=== PATIENT | female | born 1985 | race Caucasian/White ===

== ENCOUNTER 2018-11-18 16:11 | Emergency (ER) | payer BC ==
[2018-11-18] MEDS ORDERED: Sodium Chloride 0.9% 1,000 ML IV ONE (16:32)
[2018-11-18] MEDS ORDERED: Sucralfate 1 GM Tab PO ONE (16:32)
[2018-11-18] MEDS ORDERED: Alum Hydrox/Mag Hydrox/Simeth 30 ML, Lidocaine 2% 15 ML PO ONE ×2 (16:32)
--- NOTE | 2018-11-18 16:45 | EDM.PDOC ---
ED HPI GENERAL MEDICAL PROBLEM - General Chief Complaint: Abdominal Pain Stated Complaint: [facility] Time Seen by Provider: 11/18/18 16:23 Source of Information: Reports: Patient History Limitations: Reports: No Limitations - History of Present Illness INITIAL COMMENTS - FREE TEXT/NARRATIVE: patient is a 32-year-old female presents ED complaining of epigastric pain. She does have a history of acid reflux for quite some time. In the past she was on a PPI but she ran out and she stopped taking. Over the past several days she is in experiencing increased heartburn. Today she ate steak with fries and gravy and developed severe acid reflux with nausea/vomiting. Pain is localized to the epigastric region. She's had similar pain like this in the past when she had H pylori. She did undergo eradication therapy with resolution. She has had a EGD in the past 3 years ago with no history of Mooney's esophagus. She denies any bloody emesis, dark tarry stools, bloody stools, fever, chills, shortness of breath, chest pain, diarrhea, constipation, history of pancreatitis , history of gallbladder attacks, excessive alcohol use. She denies any drug use. she denies being since had an tubal ligation. patient was transported to the ED via ambulance. She received Zofran 4 mg IVP and also morphine 4 mg in total. 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 cyst removed on right ovary. - Past Surgical History HEENT Surgical History: Reports: Tonsillectomy GI Surgical History: Reports: Hernia Repair/Other Musculoskeletal Surgical History: Reports: Other (See Below) Other Musculoskeletal Surgeries/Procedures:: right knee surgery Social & Family History - Caffeine Use Caffeine Use: Reports: Coffee ED ROS GENERAL - Review of Systems Review Of Systems: ROS reveals no pertinent complaints other than HPI. ED EXAM, GI/ABD - Physical Exam Exam: See Below Exam Limited By: No Limitations General Appearance: Alert, WD/WN, No Apparent Distress Ears: Hearing Grossly Normal Nose: Normal Inspection Throat/Mouth: Normal Inspection, Normal Oropharynx, Normal Voice, No Airway Compromise Head: Atraumatic, Normocephalic Neck: Normal Inspection, Supple, Non-Tender, Full Range of Motion Respiratory/Chest: No Respiratory Distress, Lungs Clear, Normal Breath Sounds, No Accessory Muscle Use, Chest Non-Tender Cardiovascular: Normal Peripheral Pulses, Regular Rate, Rhythm, No Murmur GI/Abdominal Exam: Normal Bowel Sounds, Soft, No Organomegaly, No Distention, Tender (Epigastric pain with palpation. Negative Guerrero sign. Negative McBurney' s point tenderness.) Back Exam: Normal Inspection Extremities: Normal Inspection, Normal Range of Motion, Non-Tender, Normal Capillary Refill Neurological: Alert, Oriented, CN II-XII Intact, Normal Cognition, No Motor/ Sensory Deficits Psychiatric: Normal Affect, Normal Mood Skin Exam: Warm, Dry, Intact, Normal Color Course - Vital Signs Last Recorded V/S: Last Vital Signs Temp 97.9 F 11/18/18 19:00 Pulse 70 11/18/18 19:00 Resp 16 11/18/18 19:00 BP 124/81 11/18/18 19:00 Pulse Ox 100 11/18/18 19:00 - Orders/Labs/Meds Orders: Active Orders 24 hr Category Date Time Status Abdomen 2V AP Flat Upright [CR] Stat Exams 11/18/18 16:31 Taken Labs: Laboratory Tests 11/18/18 11/18/18 11/18/18 Range/Units 16:50 16:57 16:57 WBC 11.22 H (3.98-10.04) K/mm3 RBC 4.90 (3.98-5.22) M/mm3 Hgb 11.8 (11.2-15.7) gm/L Hct 36.7 (34.1-44.9) % MCV 74.9 L D (79.4-94.8) fl MCH 24.1 L (25.6-32.2) pg MCHC 32.2 (32.2-35.5) g/dl RDW Std Deviation 43.5 (36.4-46.3) fL Plt Count 299 (182-369) K/mm3 MPV 11.5 (9.4-12.3) fl Neutrophils % (Manual) 82 H (40-60) % Band Neutrophils % 0 (0-10) % Lymphocytes % (Manual) 9 L (20-40) % Atypical Lymphs % 0 % Monocytes % (Manual) 6 (2-10) % Eosinophils % (Manual) 3 (0.7-5.8) % Basophils % (Manual) 0 L (0.1-1.2) Platelet Estimate Adequate Hypochromasia 1+ slight Microcytosis 1+ slight RBC Morph Comment Abnormal Sodium (136-145) mEq/L Potassium (3.5-5.1) mEq/L Chloride (98-107) mEq/L Carbon Dioxide (21-32) mEq/L Anion Gap (5-15) BUN (7-18) mg/dL Creatinine (0.55-1.02) mg/dL Est Cr Clr Drug Dosing mL/min Estimated GFR (MDRD) (>60) mL/min BUN/Creatinine Ratio (14-18) Glucose (74-106) mg/dL Calcium (8.5-10.1) mg/dL Total Bilirubin (0.2-1.0) mg/dL AST (15-37) U/L ALT (14-59) U/L Alkaline Phosphatase (46-116) U/L C-Reactive Protein (<1.0) mg/dL Total Protein (6.4-8.2) g/dl Albumin (3.4-5.0) g/dl Globulin gm/dL Albumin/Globulin Ratio (1-2) Lipase (73-393) U/L Urine Color Light yellow (Yellow) Urine Appearance Clear (Clear) Urine pH 6.0 (5.0-8.0) Ur Specific [place] 1.020 (1.005-1.030) Urine Protein Negative (Negative) Urine Glucose (UA) Negative (Negative) Urine Ketones Negative (Negative) Urine Occult Blood Trace-lysed H (Negative) Urine Nitrite Negative (Negative) Urine Bilirubin Negative (Negative) Urine Urobilinogen 0.2 (0.2-1.0) Ur Leukocyte Esterase Negative (Negative) Urine RBC Not seen (0-5) /hpf Urine WBC 0-5 (0-5) /hpf Ur Squamous Epith Cells 0-5 (0-5) /hpf Urine Bacteria Not seen (FEW) /hpf Urine Mucus Not seen (FEW) /hpf Urine HCG, Qual Negative (NEGATIVE) 11/18/18 Range/Units 16:57 WBC (3.98-10.04) K/mm3 RBC (3.98-5.22) M/mm3 Hgb (11.2-15.7) gm/L Hct (34.1-44.9) % MCV (79.4-94.8) fl MCH (25.6-32.2) pg MCHC (32.2-35.5) g/dl RDW Std Deviation (36.4-46.3) fL Plt Count (182-369) K/mm3 MPV (9.4-12.3) fl Neutrophils % (Manual) (40-60) % Band Neutrophils % (0-10) % Lymphocytes % (Manual) (20-40) % Atypical Lymphs % % Monocytes % (Manual) (2-10) % Eosinophils % (Manual) (0.7-5.8) % Basophils % (Manual) (0.1-1.2) Platelet Estimate Hypochromasia Microcytosis RBC Morph Comment Sodium 140 (136-145) mEq/L Potassium 4.0 (3.5-5.1) mEq/L Chloride 105 (98-107) mEq/L Carbon Dioxide 21 (21-32) mEq/L Anion Gap 18.0 H (5-15) BUN 14 (7-18) mg/dL Creatinine 0.8 (0.55-1.02) mg/dL Est Cr Clr Drug Dosing 99.08 mL/min Estimated GFR (MDRD) > 60 (>60) mL/min BUN/Creatinine Ratio 17.5 (14-18) Glucose 111 H (74-106) mg/dL Calcium 9.0 (8.5-10.1) mg/dL Total Bilirubin 0.2 (0.2-1.0) mg/dL AST 18 (15-37) U/L ALT 24 (14-59) U/L Alkaline Phosphatase 77 (46-116) U/L C-Reactive Protein < 0.2 (<1.0) mg/dL Total Protein 7.9 (6.4-8.2) g/dl Albumin 3.9 (3.4-5.0) g/dl Globulin 4.0 gm/dL Albumin/Globulin Ratio 1.0 (1-2) Lipase 148 (73-393) U/L Urine Color (Yellow) Urine Appearance (Clear) Urine pH (5.0-8.0) Ur Specific [place] (1.005-1.030) Urine Protein (Negative) Urine Glucose (UA) (Negative) Urine Ketones (Negative) Urine Occult Blood (Negative) Urine Nitrite (Negative) Urine Bilirubin (Negative) Urine Urobilinogen (0.2-1.0) Ur Leukocyte Esterase (Negative) Urine RBC (0-5) /hpf Urine WBC (0-5) /hpf Ur Squamous Epith Cells (0-5) /hpf Urine Bacteria (FEW) /hpf Urine Mucus (FEW) /hpf Urine HCG, Qual (NEGATIVE) Meds: Medications Discontinued Medications Generic Name Dose Route Start Last Admin Trade Name Freq PRN Reason Stop Dose Admin Al Hydroxide/Mg Hydroxide 30 0 ml 11/18/18 16:32 11/18/18 17:43 ml/ Lidocaine HCl 15 ml PO 11/18/18 16:33 45 ml ONETIME ONE Administration Diphenhydramine HCl 50 mg 11/18/18 16:52 11/18/18 17:30 Benadryl IVPUSH 11/18/18 16:53 50 mg ONETIME ONE Administration Diphenhydramine HCl Confirm 11/18/18 17:33 11/18/18 17:35 Benadryl Administered 11/18/18 17:34 Not Given Dose 50 mg .ROUTE .STK-MED ONE Sodium Chloride 1,000 mls @ 250 mls/hr 11/18/18 16:32 11/18/18 17:44 Normal Saline IV 11/18/18 20:31 250 mls/hr ONETIME ONE Administration Metoclopramide HCl 5 mg 11/18/18 16:52 11/18/18 17:26 Reglan IVPUSH 11/18/18 16:53 5 mg ONETIME ONE Administration Sucralfate 1 gm 11/18/18 16:32 11/18/18 17:40 Carafate PO 11/18/18 16:33 1 gm ONETIME ONE Administration - Re-Assessments/Exams Free Text/Narrative Re-Assessment/Exam: On exam patient has severe epigastric pain with palpation. Her vital signs are stable. She is afebrile. She does carry a history of GERD as well as H pylori and underwent eradication therapy. She is hCG in the past with no history of Mooney's esophagus. She does not carry a history of pancreatitis or gallbladder attacks. She denies being with history of tubal ligation. IV has been established. Ordered and S, GI cocktail, superficial 1 mg by mouth. Initial labs and studies will include: CBC, chem 14, CRP, lipase, UA, and 2 view of the abdomen. Labs reviewed: UA indicated trace lysed blood. HCG was negative. CBC indicated White blood cell count 11.22, hemoglobin normal, MCV 74.9, neutrophil percentage is 82, no left shift, platelet count normal. CMP was essentially normal. CRP less than 0.2. Lipase normal. 184 reassessment, patient states the pain and nausea have subsided with the above therapies. She is ready be discharged home. Patient will be discharged home with instructions for gastritis. Return precautions were discussed with the patient. She had no further questions or concerns and agreed with plan Departure - Departure Time of Disposition: 18:42 Disposition: Home, Self-Care 01 Condition: Good Clinical Impression: Gastritis Qualifiers: Gastritis type: unspecified gastritis Chronicity: acute Gastritis bleeding: without bleeding Qualified Code(s): K29.00 - Acute gastritis without bleeding - Discharge Information Prescriptions: Acetaminophen/HYDROcodone [[place] 325-5 MG] 1 tab PO Q6H PRN #6 tablet PRN Reason: Pain (Severe 7-10) Sucralfate 1 gm PO QID #28 tablet Instructions: Gastritis, Adult, [id number], Nausea and Vomiting, Adult, Easy- to-Read Referrals: Maya Escoto PA-C [Primary Care Provider] - Forms: ED Department Discharge, ED Return to Work/School Form Additional Instructions: Take Prilosec 40 mg every a.m. half-hour prior to eating for the next 2 weeks. Take sucralfate one tab 4 times a day for the next 7 days. Utilize Zantac 150 milligrams at at bedtime. Do not eat or drink within 3-4 hours of going to bed. Refrain from spicy foods, caffeinated beverages, chocolates, carbonated beverages, or any other foods that cause aggravation. Please follow up with your PCP for reevaluation and H. Pylori Stool Antigen testing in 3 to [address] today since receiving a sedative medication. Do not drive while taking the Falconer. - My Orders Last 24 Hours: My Active Orders 11/18/18 16:31 Abdomen 2V AP Flat Upright [CR] Stat - Assessment/Plan Last 24 Hours: My Active Orders 11/18/18 16:31 Abdomen 2V AP Flat Upright [CR] Stat
[2018-11-18] MEDS ORDERED: Metoclopramide 10 MG/2 ML SDV IVPUSH ONE (16:52)
[2018-11-18] MEDS ORDERED: diphenhydrAMINE 50 MG/ML SDV IVPUSH ONE (16:52)
[2018-11-18] MEDS ORDERED: diphenhydrAMINE 50 MG/ML SDV ONE (17:33)
--- NOTE | 2018-11-19 12:31 | CR ---
Abdomen: Supine and upright views of the abdomen were obtained. Comparison: No prior abdominal x-ray, previous abdominal ultrasound of 09/19/[address] abdomen and pelvis study of 08/21/18. Bowel gas pattern is normal. No abnormal calcifications or soft tissue abnormality is seen. Bony structures are unremarkable. Impression: 1. Nothing acute is seen on two-view abdominal x-ray. Diagnostic code #1
== END 2018-11-18 19:00 | disposition home or self-care (01) ==
LOC: SUPCPDRO 16:11 → JD.ED 16:11
DX: K29.00 Acute gastritis without bleeding (principal); Z91.018 Allergy to other foods; Z88.8 Allergy status to other drugs, medicaments and biological substances; Z79.899 Other long term (current) drug therapy
CPT/HCPCS: 36415; 74019; 80053; 81001; 81025; 83690; 85007; 85027; 86140; 96361; 96374; 96375; 99284; A9270; J1200; J2765; J7040

== ENCOUNTER 2019-01-05 21:12 | Emergency (ER) | payer BC ==
[2019-01-05] MEDS ORDERED: Sodium Chloride 0.9% 10 ML Syringe FLUSH PRN (21:25)
[2019-01-05] MEDS ORDERED: Hyoscyamine 0.125 MG Tab.SL SL ONE (21:25)
[2019-01-05] MEDS ORDERED: Sodium Chloride 0.9% 1,000 ML IV ONE (21:27)
[2019-01-05] MEDS ORDERED: Metoclopramide 10 MG/2 ML SDV IVPUSH ONE (21:33)
[2019-01-05] MEDS ORDERED: Alum Hydrox/Mag Hydrox/Simeth 30 ML, Lidocaine 2% 15 ML PO ONE ×2 (21:33)
--- NOTE | 2019-01-05 21:40 | EDM.PDOC ---
ED HPI GENERAL MEDICAL PROBLEM - General Chief Complaint: Abdominal Pain Stated Complaint: [facility] Time Seen by Provider: 01/05/19 21:24 Source of Information: Reports: Patient, RN Notes Reviewed History Limitations: Reports: No Limitations - History of Present Illness INITIAL COMMENTS - FREE TEXT/NARRATIVE: Patient is a 33-year-old female who presents to the ED via [facility] for the evaluation of right upper quadrant pain. Patient notes that the pain has been constant since this last . She states she did have a HIDA scan done on Sunday, has not gotten the report for this yet. Patient notes her primary care provider is Trinidad Escoto. Patient states she took hydrocodone for pain relief, but this did not provide much relief. Patient vomited today around 2 times, her last food intake was at around 2 PM, and her last fluid intake was water, at roughly 7:45 PM. Patient notes that her pain is to her right upper quadrant, and shoots to her back. She does note a positive history for H. pylori, she states the last time she took antibiotics for this was one month ago. Patient denies any chance of . The patient did receive Zofran and fentanyl en route to the ER. Patient denies any fevers or chills that she's been having, but states she does have hot flashes with pain. Patient notes she has had previous hernia surgeries in her abdomen, but has not had any other abdomen surgeries. Patient states she is not vomiting of blood. Right Upper Abdomen Pain Score (Numeric/FACES): 4 - Related Data Allergies Allergy/AdvReac Type Severity Reaction Status Date / Time carrot Allergy Difficulty Verified 11/18/18 16:25 Breathing metronidazole [From Flagyl] Allergy Difficulty Verified 11/18/18 16:25 Breathing walnut Allergy Swollen Verified 11/18/18 16:25 Tongue Home Meds: Home Meds Acetaminophen/HYDROcodone [[place] 325-5 MG] 1 tab PO Q6H PRN #6 tablet 11/18/18 [ Rx] Pantoprazole [ProTONIX] 20 mg PO BID 01/05/19 [History] Past Medical History HEENT History: Reports: Impaired Vision Other HEENT History: wears contacts Gastrointestinal History: Reports: Other (See Below) Other Gastrointestinal History: gallstones Genitourinary History: Reports: Renal Calculus, UTI, Recurrent Other Genitourinary History: Past UtI's and Kidney stones 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 cyst removed on right ovary. Neurological History: Reports: Headaches, Chronic - Infectious Disease History Infectious Disease History: Reports: Chicken Pox - Past Surgical History HEENT Surgical History: Reports: Tonsillectomy GI Surgical History: Reports: Hernia Repair/Other Musculoskeletal Surgical History: Reports: Other (See Below) Other Musculoskeletal Surgeries/Procedures:: right knee surgery Social & Family History - Caffeine Use Caffeine Use: Reports: Coffee ED ROS GENERAL - Review of Systems Review Of Systems: See Below Constitutional: Reports: Fever (subjective), Chills HEENT: Reports: No Symptoms Respiratory: Denies: Shortness of Breath Cardiovascular: Reports: Palpitations. Denies: Chest Pain GI/Abdominal: Reports: Abdominal Pain (RUQ), Nausea, Vomiting, Other (heartburn) . Denies: Constipation, Diarrhea : Reports: No Symptoms Musculoskeletal: Reports: No Symptoms Skin: Reports: No Symptoms Neurological: Reports: No Symptoms Psychiatric: Reports: No Symptoms Hematologic/Lymphatic: Reports: No Symptoms Immunologic: Reports: No Symptoms ED EXAM, GI/ABD - Physical Exam Exam: See Below Exam Limited By: No Limitations General Appearance: Alert, WD/WN, No Apparent Distress (pt appears to be in pain ) Ears: Normal External Exam Throat/Mouth: Normal Inspection, Normal Lips, Normal Teeth, Normal Gums, Normal Oropharynx, Normal Voice, No Airway Compromise Head: Atraumatic, Normocephalic Neck: Normal Inspection Respiratory/Chest: No Respiratory Distress, Lungs Clear, Normal Breath Sounds, No Accessory Muscle Use, Chest Non-Tender Cardiovascular: Normal Peripheral Pulses, Regular Rate, Rhythm, No Murmur GI/Abdominal Exam: Normal Bowel Sounds, Soft, No Distention, No Mass, Tender ( RUQ, Guerrero sign positive) Extremities: Normal Inspection, Normal Capillary Refill Neurological: Alert, Oriented, Normal Cognition, No Motor/Sensory Deficits Psychiatric: Normal Affect, Normal Mood Skin Exam: Warm, Dry, Intact, Normal Color, No Rash Course - Vital Signs Last Recorded V/S: Last Vital Signs Temp 98.0 F 01/05/19 21:28 Pulse 71 01/05/19 21:28 Resp 20 01/05/19 21:28 BP 110/71 01/05/19 21:28 Pulse Ox 99 01/05/19 21:28 - Orders/Labs/Meds Orders: Active Orders 24 hr Category Date Time Status Peripheral IV Care [RC] . DIRECTED Care 01/05/19 21:25 Active Abdomen Pelvis w Cont [CT] Stat Exams 01/05/19 21:35 Taken Magnesium Citrate [Citrate of Magnesia] Med 01/05/19 23:04 Once 296 ml PO ONETIME ONE Sodium Chloride 0.9% [Saline Flush] Med 01/05/19 21:25 Active 10 ml FLUSH ASDIRECTED PRN Peripheral IV Insertion Adult [OM.PC] Stat Oth 01/05/19 21:24 Ordered Medication Orders Sodium Chloride (Saline Flush) 10 ml FLUSH ASDIRECTED PRN PRN Reason: Keep Vein Open Last Admin: 01/05/19 21:34 Dose: 10 ml Labs: Laboratory Tests 01/05/19 01/05/19 Range/Units 21:58 21:58 WBC 12.16 H (3.98-10.04) K/mm3 RBC 4.90 (3.98-5.22) M/mm3 Hgb 11.8 (11.2-15.7) gm/dl Hct 36.7 (34.1-44.9) % MCV 74.9 L (79.4-94.8) fl MCH 24.1 L (25.6-32.2) pg MCHC 32.2 (32.2-35.5) g/dl RDW Std Deviation 44.3 (36.4-46.3) fL Plt Count 275 (182-369) K/mm3 MPV 11.0 (9.4-12.3) fl Neutrophils % (Manual) 69 H (40-60) % Band Neutrophils % 0 (0-10) % Lymphocytes % (Manual) 25 (20-40) % Atypical Lymphs % 0 % Monocytes % (Manual) 6 (2-10) % Eosinophils % (Manual) 0 L (0.7-5.8) % Basophils % (Manual) 0 L (0.1-1.2) Platelet Estimate Adequate Microcytosis 1+ slight Ovalocytes 1+ slight RBC Morph Comment Not Reportable Sodium 139 (136-145) mEq/L Potassium 3.8 (3.5-5.1) mEq/L Chloride 106 (98-107) mEq/L Carbon Dioxide 21 (21-32) mEq/L Anion Gap 15.8 H (5-15) BUN 13 (7-18) mg/dL Creatinine 0.7 (0.55-1.02) mg/dL Est Cr Clr Drug Dosing 112.20 mL/min Estimated GFR (MDRD) > 60 (>60) mL/min BUN/Creatinine Ratio 18.6 H (14-18) Glucose 91 (74-106) mg/dL Calcium 8.4 L (8.5-10.1) mg/dL Total Bilirubin 0.2 (0.2-1.0) mg/dL GGT 23 (5-55) U/L AST 13 L (15-37) U/L ALT 24 (14-59) U/L Alkaline Phosphatase 74 (46-116) U/L Total Protein 7.3 (6.4-8.2) g/dl Albumin 3.5 (3.4-5.0) g/dl Globulin 3.8 gm/dL Albumin/Globulin Ratio 0.9 L (1-2) Meds: Medications Generic Name Dose Route Start Last Admin Trade Name Freq PRN Reason Stop Dose Admin Sodium Chloride 10 ml 01/05/19 21:25 01/05/19 21:34 Saline Flush FLUSH 10 ml ASDIRECTED PRN Administration Keep Vein Open Discontinued Medications Generic Name Dose Route Start Last Admin Trade Name Freq PRN Reason Stop Dose Admin Al Hydroxide/Mg Hydroxide 30 0 ml 01/05/19 21:33 01/05/19 21:41 ml/ Lidocaine HCl 15 ml PO 01/05/19 21:34 45 ml ONETIME ONE Administration Hyoscyamine 0.125 mg 01/05/19 21:25 01/05/19 21:34 Hyomax-Sl SL 01/05/19 21:26 0.125 mg ONETIME ONE Administration Sodium Chloride 1,000 mls @ 999 mls/hr 01/05/19 21:27 01/05/19 21:34 Normal Saline IV 01/05/19 22:27 999 mls/hr ONETIME ONE Administration Iopamidol 100 ml 01/05/19 22:32 01/05/19 22:34 Isovue-300 (61%) IVPUSH 01/05/19 22:33 100 ml ONETIME ONE Administration Metoclopramide HCl mg 01/05/19 21:33 01/05/19 21:41 Reglan IVPUSH 01/05/19 21:34 10 mg ONETIME ONE Administration - Re-Assessments/Exams Free Text/Narrative Re-Assessment/Exam: 01/05/19 21:40 Patient presents to the ED for the evaluation of right upper quadrant abdominal pain. Her pain is suspicious of gallbladder etiology, did order CBC, CMP, GGT, 1 tab of Levsin, 10 mg Reglan and a GI cocktail for initial management. 01/05/19 23:04 Patient is resting quietly in the room, CT is done, and demonstrate no acute abnormalities at this time. I did have a chance to look over the patient's HIDA scan, this showed normal gallbladder, but with a decreased ejection fraction of 30%. I did discuss these findings with the patient, I directed her to follow up with her primary care provider for further management of this. She is understanding. At this time the patient's CT did show quite a diffuse amount of stool in her colon, consistent with constipation. Will have her take some mag citrate at home to see if that doesn't help alleviate some of the problems. Departure - Departure Time of Disposition: 23:05 Disposition: Home, Self-Care 01 Condition: Fair Clinical Impression: Biliary colic Constipation Qualifiers: Constipation type: unspecified constipation type Qualified Code(s): K59.00 - Constipation, unspecified - Discharge Information *PRESCRIPTION DRUG MONITORING PROGRAM REVIEWED*: No *COPY OF PRESCRIPTION DRUG MONITORING REPORT IN PATIENT OMEGA: No Instructions: High-Fiber Diet, Constipation, Adult, [id number] Forms: ED Department Discharge Additional Instructions: You were evaluated in the ER tonight regarding your right upper quadrant abdominal pain. Your CT demonstrated no acute bacterial infection or abnormality of the gallbladder, nor was it impressive for any other sort of acute abnormality, like appendicitis. Your labs were essentially within normal limits, you were slightly dehydrated with the IV fluid should help with this. Your CT also demonstrated mild amount of stool in her colon, which is consistent with constipation. You were provided with magnesium citrate, please take one half bottle tomorrow morning, wait a few hours see if this doesn't provide a large bowel movement, if not, repeat with the other half bottle. Recommend that you follow up with your primary care provider, Trinidad Escoto for further management regarding her gallbladder from here. You may take Tylenol every 6 hours as needed for further pain relief, or the hydrocodone as previously prescribed. Please return to the ED if your symptoms should change or worsen. - My Orders Last 24 Hours: My Active Orders 01/05/19 21:24 Peripheral IV Insertion Adult [OM.PC] Stat 01/05/19 21:25 Peripheral IV Care [RC] . DIRECTED Sodium Chloride 0.9% [Saline Flush] 10 ml FLUSH ASDIRECTED PRN 01/05/19 21:35 Abdomen Pelvis w Cont [CT] Stat 01/05/19 23:04 Magnesium Citrate [Citrate of Magnesia] 296 ml PO ONETIME ONE - Assessment/Plan Last 24 Hours: My Active Orders 01/05/19 21:24 Peripheral IV Insertion Adult [OM.PC] Stat 01/05/19 21:25 Peripheral IV Care [RC] . DIRECTED Sodium Chloride 0.9% [Saline Flush] 10 ml FLUSH ASDIRECTED PRN 01/05/19 21:35 Abdomen Pelvis w Cont [CT] Stat 01/05/19 23:04 Magnesium Citrate [Citrate of Magnesia] 296 ml PO ONETIME ONE
[2019-01-05] MEDS ORDERED: Iopamidol 612 MG/ML 100 ML Bottle IVPUSH ONE (22:32)
[2019-01-05] MEDS ORDERED: Magnesium Citrate Solution 296 ML Bottle PO ONE (23:04)
--- NOTE | 2019-01-06 07:05 | CT ---
CT abdomen and pelvis Technique: Multiple axial sections were obtained from above the dome of the diaphragm inferiorly through the pubic symphysis. Intravenous contrast was utilized. No oral contrast has been given. Comparison: Prior CT abdomen and pelvis exam of 08/21/18. Findings: Visualized lung bases show nothing acute. Liver contains no focal abnormality. Spleen appears within normal limits. Adrenal glands show no nodule. Pancreas is within normal limits. Gallbladder contains no calcified gallstones. Kidneys show symmetric contrast enhancement without hydronephrosis or mass. Aorta shows no aneurysm. No retroperitoneal adenopathy or mesenteric abnormalities are seen. No pelvic mass or adenopathy is identified. Appendix is seen which is normal in size. No free fluid or inflammatory change is seen. Delayed images show contrast within the bladder. Bone window settings were reviewed which appear within normal limits for the patient's age. Impression: 1. Nothing acute is appreciated on CT study of the abdomen and pelvis. 2. No significant change from previous study is seen. Diagnostic code #1 I agree with preliminary report from [facility], finalized on 01/05/19, 11:54 PM Central Time
== END 2019-01-05 23:23 | disposition home or self-care (01) ==
LOC: JD.ED 21:12
DX: K80.50 Calculus of bile duct without cholangitis or cholecystitis without obstruction (principal); K59.00 Constipation, unspecified; Z91.018 Allergy to other foods; Z88.8 Allergy status to other drugs, medicaments and biological substances
CPT/HCPCS: 36415; 74177; 74177-26; 80053; 82977; 85007; 85027; 96361; 96374; 99284; 99285-25; A9270-GY; J2765; J7040; Q9967

== ENCOUNTER 2019-01-16 09:00 | Day surgery (SDC) | payer BC ==
[~2019-01-16 09:00] MED LIST: Lactated Ringers 1,000 ML IV SCH; Lidocaine 1%/Sod Bicarbonate in NS 8.4% 1 ML Syringe IDERM PRN; Sodium Chloride 0.9% 10 ML Syringe FLUSH PRN
[2019-01-16] MEDS ORDERED: Bupivacaine 0.5%/EPINEPHrine 1:200,000 50 ML MDV ONE (09:03)
[2019-01-16] MEDS ORDERED: Scopolamine 1.5 MG Transdermal Patch TOP ONE (09:54)
--- NOTE | 2019-01-16 10:02 | PCM.PREANE ---
Preanesthetic Assessment - Anesthesia/Transfusion/Family Hx Anesthesia History: Prior Anesthesia Reaction Type of Anesthesia Reaction: Excessive Nausea/Vomiting Family History of Anesthesia Reaction: No Transfusion History: No Prior Transfusion(s) Intubation History: Unknown - Review of Systems General: No Symptoms Pulmonary: No Symptoms Cardiovascular: No Symptoms Gastrointestinal: No Symptoms Neurological: Headache - Physical Assessment NPO Status Date: 01/15/19 NPO Status Time: 18:30 Vital Signs: Last Vital Signs Temp 97.5 F 01/16/19 09:15 Pulse 60 01/16/19 09:15 Resp 16 01/16/19 09:15 BP 123/92 H 01/16/19 09:15 Pulse Ox 96 01/16/19 09:15 Height: 1.7 m Weight: 79.832 kg ASA Class: 2 Mental Status: Alert & Oriented x3 Airway Class: Mallampati = 3 Dentition: Reports: Dentures (upper plate), Broken Tooth/Teeth (lt lower incisor broken, patient is aware that it might be lost during GA and she is OK with that) Thyro-Mental Finger Breadths: 3 Mouth Opening Finger Breadths: 3 ROM/Head Extension: Full Lungs: Clear to Auscultation, Normal Respiratory Effort Cardiovascular: Regular Rate, Regular Rhythm - Lab Values: Laboratory Last Values Urine HCG, Qual Negative (NEGATIVE) 01/16/19 09:16 - Allergies Allergies/Adverse Reactions: Allergies Allergy/AdvReac Type Severity Reaction Status Date / Time carrot Allergy Airway Verified 01/15/19 12:52 Tightness docusate [From Colace] Allergy Cannot Verified 01/15/19 12:52 Remember Influenza Virus Vaccines Allergy Other Verified 01/15/19 12:52 metronidazole [From Flagyl] Allergy Airway Verified 01/15/19 12:52 Tightness walnut Allergy Airway Verified 01/15/19 12:52 Tightness - Anesthesia Plan Pre-Op Medication Ordered: Other - Acknowledgements Anesthesia Type Planned: General Anesthesia Pt an Appropriate Candidate for the Planned Anesthesia: Yes Alternatives and Risks of Anesthesia Discussed w Pt/Guardian: Yes Pt/Guardian Understands and Agrees with Anesthesia Plan: Yes PreAnesthesia Questionnaire HEENT History: Reports: Impaired Vision, Other (See Below) Other HEENT History: Upper dentures Cardiovascular History: Reports: None Respiratory History: Reports: None Gastrointestinal History: Reports: GERD, Helicobacter Pylori, Other (See Below) Other Gastrointestinal History: Diarrhea Genitourinary History: Reports: Renal Calculus, UTI, Recurrent Other Genitourinary History: Past UtI's and Kidney stones FLORIST History: Reports: Ectopic , Other OB/BYN History: Gardenella vaginitis, ovarian cyst Musculoskeletal History: Reports: Other (See Below) Other Musculoskeletal History: Tendinitis, left ankle sprain Neurological History: Reports: Headaches, Chronic Psychiatric History: Reports: None Endocrine/Metabolic History: Reports: None Hematologic History: Reports: None Immunologic History: Reports: None Oncologic (Cancer) History: Reports: None Dermatologic History: Reports: None - Infectious Disease History Infectious Disease History: Reports: Other (See Below) Other Infectious Disease History: Cold sores - Past Surgical History Head Surgeries/Procedures: Reports: None HEENT Surgical History: Reports: Adenoidectomy, Tonsillectomy Cardiovascular Surgical History: Reports: None Respiratory Surgical History: Reports: None GI Surgical History: Reports: Other (See Below) Other GI Surgeries/Procedures: Triple hernia repair Female Surgical History: Reports: Tubal Ligation, Other (See Below) Other Female Surgeries/Procedures: Diagnostic laparoscopy Endocrine Surgical History: Reports: None Neurological Surgical History: Reports: None Musculoskeletal Surgical History: Reports: Other (See Below) Other Musculoskeletal Surgeries/Procedures:: Right knee surgery for cyst removal Oncologic Surgical History: Reports: None Dermatological Surgical History: Reports: None - SUBSTANCE USE Smoking Status *Q: Current Every Day Smoker Tobacco Use Within Last Twelve Months: Cigarettes Second Hand Smoke Exposure: Yes Recreational Drug Use History: No - HOME MEDS Home Medications: Home Meds Acetaminophen/HYDROcodone [[place] 325-5 MG] 1 tab PO Q6H PRN #6 tablet 11/18/18 [ Rx] RX: Pantoprazole [ProTONIX] 20 mg PO BID 01/05/19 [History] - CURRENT (IN HOUSE) MEDS Current Meds: Current Medications Lactated Ringer's (Ringers, Lactated) 1,000 mls @ 125 mls/hr IV ASDIRECTED MADELINE Stop: 01/17/19 23:00 Last Admin: 01/16/19 09:45 Dose: 125 mls/hr Lidocaine/Sodium Bicarbonate (Buffered Lidocaine 1% In Ns 8.4%) 0.25 ml IDERM ONETIME PRN PRN Reason: Prior to IV Start Stop: 01/16/19 23:00 Last Admin: 01/16/19 09:44 Dose: 0.25 ml Scopolamine (Transderm-Scop) 1.5 mg TOP ONETIME ONE Stop: 01/16/19 09:55 Sodium Chloride (Saline Flush) 10 ml FLUSH ASDIRECTED PRN PRN Reason: Keep Vein Open Stop: 01/16/19 23:00 Discontinued Medications Bupivacaine HCl/Epinephrine Bitart (Marcaine 0.5%/Epinephrine 1:200,000) Confirm Administered Dose 50 ml .ROUTE .STK-MED ONE Stop: 01/16/19 09:04
[2019-01-16] MEDS ORDERED: Propofol 200 MG/20 ML SDV ONE (10:03)
[2019-01-16] MEDS ORDERED: Lidocaine 1% 4 ML ONE (10:04)
[2019-01-16] MEDS ORDERED: Flumazenil 0.1 MG/ML 5 ML MDV ONE (10:04)
[2019-01-16] MEDS ORDERED: Midazolam 1 MG/ML 2 ML SDV ONE (10:05)
[2019-01-16] MEDS ORDERED: fentaNYL 250 MCG/5 ML SDV ONE (10:05)
[2019-01-16] MEDS ORDERED: Rocuronium 50 MG/5 ML Vial ONE (10:05)
[2019-01-16] MEDS ORDERED: ceFAZolin 1 GM Vial ONE (10:28)
[2019-01-16] MEDS ORDERED: Ondansetron 4 MG/2 ML SDV ONE (10:47)
[2019-01-16] MEDS ORDERED: Dexamethasone 4 MG/ML 5 ML MDV ONE (10:48)
[2019-01-16] MEDS ORDERED: HYDROmorphone 0.5 MG/0.5 ML Syringe IVPUSH PRN (10:59)
[2019-01-16] MEDS ORDERED: Ondansetron 4 MG/2 ML SDV IVPUSH PRN (10:59)
[2019-01-16] MEDS ORDERED: diphenhydrAMINE 50 MG/ML SDV IVPUSH PRN (10:59)
[2019-01-16] MEDS ORDERED: fentaNYL 100 MCG/2 ML SDV IVPUSH PRN (10:59)
[2019-01-16] MEDS ORDERED: Lactated Ringers 1,000 ML ONE (11:07)
[2019-01-16] MEDS ORDERED: HYDROmorphone 0.5 MG/0.5 ML Syringe ONE (11:21)
[2019-01-16] MEDS ORDERED: Ketorolac 30 MG/ML SDV ONE (11:24)
[2019-01-16] MEDS ORDERED: fentaNYL 100 MCG/2 ML SDV ONE (11:28)
--- NOTE | 2019-01-16 11:56 | PCM.POSTAN ---
POST ANESTHESIA ASSESSMENT - MENTAL STATUS Mental Status: Alert, Oriented - VITAL SIGNS Vital Signs: Last Vital Signs Temp 36.4 C 01/16/19 09:15 Pulse 60 01/16/19 09:15 Resp 16 01/16/19 09:15 BP 123/92 H 01/16/19 09:15 Pulse Ox 96 01/16/19 09:15 - RESPIRATORY Respiratory Status: Respiratory Rate WNL, Airway Patent, O2 Saturation Stable - CARDIOVASCULAR CV Status: Pulse Rate WNL, Blood Pressure Stable - GASTROINTESTINAL GI Status: No Symptoms - PAIN Pain Score: 2 - POST OP HYDRATION Hydration Status: Adequate & Stable
--- NOTE | 2019-01-16 11:57 | PCM.PRNOTE ---
- Free Text/Narrative Note: Operative Report Operation: laparoscopic cholecystectomy Date: 01/16/2019 Attending Surgeon: Sylvester Juares MD Indication for Surgery: gallbladder hypokinesis Preoperative antibiotics: 2 g Ancef IV VTE prophylaxis: SCDs Estimated Blood Loss: 5 cc Findings: Maria Del Rosario hepatic adhesions suggestive of Kglb-Attf-Jexobi syndrome. Normal appearance of gallbladder. The cystic duct was diminutive and fibrosed. There was some spillage of bile from the body of the gallbladder during dissection. A 7 F IRINA drain was left in the gallbladder fossa. Detailed Report: The patient underwent general endotracheal anesthesia after being placed supine on the operating table and initial timeout. The abdomen was prepped and draped in sterile fashion. A pre-incision timeout was performed confirming the patient s identity and the operation to be performed. A Veress needle was inserted into the abdominal cavity below the left costal margin along the mid-clavicular line. The abdomen was insufflated with CO2 to 15 mm Hg. Gas was aspirated below the umbilicus with a syringe in order to ensure safe placement of a 5 mm bladed laparoscopic port. The 5mm 30 degree laparoscope was then inserted and viscera inspected. The gallbladder appeared relatively normal. Two additional 5 mm ports were placed along the right subcostal region under direct vision with the laparoscope, and a 12 mm port was placed at the subxiphoid region. The gallbladder was grasped at the fundus with a locking grasper and retracted anteriorly and superiorly, exposing the infundibulum. This was grasped with the surgeons left hand grasper and retracted laterally. The hook electrode was used to open the overlying peritoneum, and this plane of dissection was developed along the edges of the gallbladder at its interface with the liver bed. A combination of hook electrode and the [place] grasper were used to dissect out the cystic duct and artery. It became apparent during dissection that the cystic duct had been transected using the hook as eventually the only structure seen going to the gallbladder was the cystic artery. No bile leak was evident after thorough irrigation and suctioning. The cystic duct stump was visualized, and appeared very small in caliber and fibrotic. I did not feel it was safe to try to place a clip on this, and there was no evidence of bile leak throughout the remainder of the case. The artery was clipped and cut, and hook cautery was used to separate the gallbladder from the liver. The specimen was then placed in an Endocatch bag and removed through the subxiphoid port. The liver bed was inspected and appeared hemostatic. The larger subxiphoid port was closed at the level of the fascia with vicryl suture using the PMI laparoscopic suture passer. A 7 F IRINA drain was placed in the dissection field and brought out through the right lower quadrant incision. This was secured at the skin with a 2-0 nylon suture. Pneumoperitoneum was then released. All skin incisions were then closed with placement of subcuticular vicryl suture and dressed with dermabond. A total of 30 cc 0.5% marcaine with epinephrine was used for local anesthesia at the incision sites. The patient tolerated the operation well, was extubated in the operating room and transferred to the PACU for routine post-anesthesia care. Sylvester Juares MD General Surgery
[2019-01-16] MEDS ORDERED: Haloperidol Lactate 5 MG/ML SDV IVPUSH PRN (12:08)
[2019-01-16] MEDS ORDERED: oxyCODONE 5 MG Tab PO PRN (12:54)
--- NOTE | 2019-01-16 13:48 | PCM48HPAN ---
Post Anesthesia Note - EVALUATION WITHIN 48HRS OF ANESTHETIC Vital Signs in Normal Range: Yes Patient Participated in Evaluation: Yes Respiratory Function Stable: Yes Airway Patent: Yes Cardiovascular Function Stable: Yes Hydration Status Stable: Yes Pain Control Satisfactory: Yes Nausea and Vomiting Control Satisfactory: Yes Mental Status Recovered: Yes Vital Signs: Last Vital Signs Temp 36.5 C 01/16/19 12:50 Pulse 57 L 01/16/19 13:20 Resp 16 01/16/19 13:20 BP 103/64 01/16/19 13:20 Pulse Ox 91 L 01/16/19 13:20
== END 2019-01-16 14:30 | disposition home or self-care (01) ==
LOC: JD.SDS 09:00
PROVIDERS: ATTEND Surgery
DX: K81.1 Chronic cholecystitis (principal); K83.8 Other specified diseases of biliary tract; F17.210 Nicotine dependence, cigarettes, uncomplicated; Z88.1 Allergy status to other antibiotic agents; Z88.8 Allergy status to other drugs, medicaments and biological substances; Z91.018 Allergy to other foods; Z79.899 Other long term (current) drug therapy
CPT/HCPCS: 47562; 81025; A9270; J0690; J1100; J1170; J1630; J1885; J2001; J2250; J2405; J2704; J3010; J3490; J7120; 00790